=== PATIENT | female | born 1990 | race Caucasian/White ===

== ENCOUNTER 2016-06-30 15:13 | Emergency (ER) | payer OTHER ==
--- NOTE | 2016-06-30 15:44 | ED ORDER SUMMARY ---
..... Patient: LIN SUAZO OrderSheet [facility] VisitID: [id number] [address] [place] [address] 25y, F Registration Date/Time: 06/30/2016 ORDER SHEET Weight: 72.5 kg (stated) Allergies: No Known Drug Allergy GENERAL ORDERS: MEDICATION ORDERS: Zofran ODT PO 4 mg (NOW) (15:40 06/30/2016 HBivens A.R.N.P.) (Ack 15:46 MWinterer R.N.) (16:06 MWinterer R.N.) IV FLUIDS: ORDER SHEET NOTES: [Electronically signed by Donnell Sr RBayronNBayron (16:14 06/30/2016)] [Electronically signed by Cristel Russell.R.N.P. (17:51 06/30/2016)] [Electronically locked/signed by Donnell SrNBayron (16:14 06/30/2016)]
--- NOTE | 2016-06-30 15:44 | ED NURSING NOTES ---
Clinical Report - Nurses [facility] [address] [place] [address] 06/30/2016 15:15 Patient: LIN SUAZO TRIAGE Triage time 1524. Chief Complaint: COUGH and BODY ACHES and SINUS DRAINAGE, SINUS CONGESTION, RUNNY NOSE and FATIGUE. Alert. No acute distress. --15:32 Donnell Sr R.N. 15:24 06/30/16. BP: 121/67. HR: 102. RR: 16. O2 saturation: 100%. Temp: 98.6 F (oral). Pain level now: 12/23. --15:32 Donnell Sr R.N. Weight: 72.5 kg stated. Height/Length: 67 inches Per Patient. BMI: 25.1. --15:31 Donnell Sr R.N. Medications OXcarbazepine Oral 150 mg, 2x a day. --15:30 Donnell Sr R.N. Allergies No Known Drug Allergy. --15:30 Donnell Sr R.N. History Arrived by private vehicle. Historian: patient. Accompanied by family. This started yesterday. Onset was gradual. ( Patient presents to the ED with symptoms of cough, chest congestion and tightness x 3 weeks, but states that the chest congestion and tightness became significantly worse last night and patient states that she became nauseous last night. Patient states that she and a friend have been driving cross country from [place] since [place] She has had fatigue, sinus pain and a headache. ( Patient reports nausea started last night.). 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 PAST MEDICAL HX: Immunizations: up-to-date. Last normal menstrual period- Jun 13. No contraception. SOCIAL HX: Never smoker. Occasional alcohol use. History of drug use. (no). No infectious disease exposure. FALL RISK ASSESSMENT: Fall risk assessment completed. No fall risk identified. NUTRITIONAL RISK ASSESSMENT: The nutritional risk assessment revealed no deficiencies. FUNCTIONAL ASSESSMENT: Functional assessment: no impairments noted. LEARNING NEEDS ASSESSMENT: The learning needs assessment revealed no barriers. SKIN INTEGRITY ASSESSMENT: Skin integrity risk assessment completed. No skin integrity risk identified. --15:32 Donnell Sr R.N. PROBLEMS: Bipolar Disorder. --15:30 Donnell Sr R.N. ADDITIONAL SURGERIES: Tooth extraction. --15:30 Donnell Sr R.N. PHYSICAL ASSESSMENT Ambulatory to room. GENERAL / NEURO / PSYCH: Alert. Oriented X 4. Appears in no acute distress. HEENT: Pupils equal, round and reactive to light. Mucous membranes are pink. RESPIRATORY: Mild respiratory distress. Cough productive of moderate amounts of clear, yellow sputum. CVS: Normal sinus rhythm noted. Capillary refill less than 2 seconds. Pulses within normal limits. GI / : The patient has had nausea. Abdomen soft and nontender and normal bowel sounds. SKIN: Skin intact. Skin is warm and dry. Normal skin turgor. --15:33 Donnell Sr R.N. NURSING PROGRESS NOTES Call light placed in reach. Side rails up x 1. Bed placed in lowest position. Brakes of bed on. --15:33 Donnell Sr R.N. 15:51 06/30/2016 Zofran ODT (Ondansetron) PO 4 mg given. Allergies verified and confirmed 5 rights. --16:06 Hue Hernandez R.N. DISPOSITION / DISCHARGE Condition at departure: improved. The goals identified in the patient's plan of care were met. No learning barriers present. Discharge instructions provided and reviewed with the patient. Reviewed medication(s) side effects, precautions, dosing and course information. Reviewed fever care instructions. Reviewed need for increased fluid intake. Patient verbalized understanding. Written instructions provided in Swedish. The patient was discharged home and accompanied by patient financial counselor. She left the Emergency Department ambulatory and via private vehicle. [employer] Operator driving. --16:13 Donnell Sr R.N. 16:12 06/30/16. BP: 98/49. HR: 80. RR: 16. O2 saturation: 100%. Temp: 98.2 F. Pain level now: 0/10. --16:13 Donnell Sr R.N. Departure time: 1613 PM. --16:14 Donnell Sr R.N. Locked/Released at 06/30/2016 16:14 by Donnell Sr R.N.
--- NOTE | 2016-06-30 15:44 | ED ORDER SUMMARY ---
..... Patient: LIN SUAZO OrderSheet [facility] VisitID: [id number] [address] [place] [address] 25y, F Registration Date/Time: 06/30/2016 ORDER SHEET Weight: 72.5 kg (stated) Allergies: No Known Drug Allergy GENERAL ORDERS: MEDICATION ORDERS: Zofran ODT PO 4 mg (NOW) (15:40 06/30/2016 HBivens A.R.N.P.) (Ack 15:46 MWinterer R.N.) (16:06 MWinterer R.N.) IV FLUIDS: ORDER SHEET NOTES: [Electronically signed by Donnell Sr RBayronNBayron (16:14 06/30/2016)] [Electronically signed by Cristel Russell.R.N.P. (17:51 06/30/2016)] [Electronically locked/signed by Donnell SrNBayron (16:14 06/30/2016)]
--- NOTE | 2016-06-30 15:44 | ED CLINICAL REPORT ---
Clinical Report - Physicians/Mid Levels [facility] [address] [place] [address] 06/30/2016 15:15 Patient: LIN SUAZO Time Seen: 15:31; initial patient contact, initial documentation, patient care assumed. Arrived- By private vehicle. Historian- patient. HISTORY OF PRESENT ILLNESS Chief Complaint: COUGH, SINUS PAIN and MUSCLE ACHES. This started about 3 weeks ago and is still present. The illness is described as moderate. The patient has had a cough, nasal congestion, sinus pressure, sinus drainage and muscle aches. She has had a nasal discharge. She has had scant amounts of thick, yellow, green sputum. No difficulty breathing, chest pain, fever, sore throat or hoarseness. No ear pain. She has had chest discomfort (says her chest feels like it is full of smoke). Additional history - No known contact with a sick individual. No recent travel. Similar symptoms previously: None. Recent medical care: Not recently seen/assessed. REVIEW OF SYSTEMS The patient has had a moderate, pressure-like frontal and facial headache. She has had nausea. No vomiting, diarrhea or abdominal pain. All systems otherwise negative, except as recorded above. PAST HISTORY See nurses notes. PROBLEMS: Bipolar Disorder. --15:30 Donnell Sr RSteve. ADDITIONAL SURGERIES: Tooth extraction. --15:30 Donnell Sr R.N. SOCIAL HISTORY Never smoker. Occasional alcohol use. Not exposed to second-hand smoke at home. No drug use. No recent travel. Is a local resident. FAMILY HISTORY Negative. ADDITIONAL NOTES The nursing notes have been reviewed with agreement regarding the chief complaint, HPI, ROS, PMH and patient medications and allergies. PHYSICAL EXAM Vital Signs: 06/30/2016 15:24 BP: 121/67. HR: 102. RR: 16. O2 saturation: 100%. Temp: 98.6 F. Pain level now: 7/10. Have been reviewed as normal and appear to be correct. Appearance: Alert. No acute distress. Eyes: Pupils equal, round and reactive to light. Eyes normal inspection. ENT: Ears normal. Nose normal. Pharynx normal. Uvula midline. Neck: Normal inspection. Neck supple. CVS: Normal heart rate and rhythm. Heart sounds normal. Pulses normal. Respiratory: No respiratory distress. Breath sounds normal. Back: Normal inspection. Skin: Skin warm and dry. Normal skin color. No rash. Normal skin turgor. Extremities: Extremities exhibit normal ROM. No lower extremity edema. Neuro: Oriented X 3. No motor deficit. No sensory deficit. PROGRESS AND PROCEDURES Patient counseled in person regarding the patient's stable condition and diagnosis. 15:43. Differential Diagnosis: Other possible considerations: flu, uri, sinusitis, bronchitis, pneumonia. Above considerations are based on history and physical exam. Differential diagnosis was discussed with patient. Disposition: Discharged home in good and unchanged condition (15:44). Condition: good and stable. CLINICAL IMPRESSION Acute sinusitis INSTRUCTIONS Alternate Tylenol (Acetaminophen) and Motrin (Ibuprofen) for fever, temperature greater than 101 degrees. Take according to label instructions. Drink plenty of fluids for the next 24 hours until better. May continue medications with sips only. Warnings: GENERAL WARNINGS: Return or contact your physician immediately if your condition worsens or changes unexpectedly, if not improving as expected, or if other problems arise. Specifically return if problem worsens. Prescription Medications: Nasacort nasal spray: 2 sprays in each nostril once daily as needed for allergies. Dispense one (1) unit. No refills. Substitution is permissible. Augmentin 875 mg: take 1 tablet orally every 12 hours for 10 days. No refill. Follow-up: Follow up with your doctor in about five days even if well. Call for an appointment. Summary of care provided to patient. Understanding of the discharge instructions verbalized by patient. (Electronically signed by Cristel Russell A.R.N.P. 06/30/2016 17:51)
--- NOTE | 2016-06-30 15:44 | ED NURSING NOTES ---
Clinical Report - Nurses [facility] [address] [place] [address] 06/30/2016 15:15 Patient: LIN SUAZO TRIAGE Triage time 1524. Chief Complaint: COUGH and BODY ACHES and SINUS DRAINAGE, SINUS CONGESTION, RUNNY NOSE and FATIGUE. Alert. No acute distress. --15:32 Donnell Sr R.N. 15:24 06/30/16. BP: 121/67. HR: 102. RR: 16. O2 saturation: 100%. Temp: 98.6 F (oral). Pain level now: 12/23. --15:32 Donnell Sr R.N. Weight: 72.5 kg stated. Height/Length: 67 inches Per Patient. BMI: 25.1. --15:31 Donnell Sr R.N. Medications OXcarbazepine Oral 150 mg, 2x a day. --15:30 Donnell Sr R.N. Allergies No Known Drug Allergy. --15:30 Donnell Sr R.N. History Arrived by private vehicle. Historian: patient. Accompanied by family. This started yesterday. Onset was gradual. ( Patient presents to the ED with symptoms of cough, chest congestion and tightness x 3 weeks, but states that the chest congestion and tightness became significantly worse last night and patient states that she became nauseous last night. Patient states that she and a friend have been driving cross country from [place] since [place] She has had fatigue, sinus pain and a headache. ( Patient reports nausea started last night.). 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 PAST MEDICAL HX: Immunizations: up-to-date. Last normal menstrual period- Jun 13. No contraception. SOCIAL HX: Never smoker. Occasional alcohol use. History of drug use. (no). No infectious disease exposure. FALL RISK ASSESSMENT: Fall risk assessment completed. No fall risk identified. NUTRITIONAL RISK ASSESSMENT: The nutritional risk assessment revealed no deficiencies. FUNCTIONAL ASSESSMENT: Functional assessment: no impairments noted. LEARNING NEEDS ASSESSMENT: The learning needs assessment revealed no barriers. SKIN INTEGRITY ASSESSMENT: Skin integrity risk assessment completed. No skin integrity risk identified. --15:32 Donnell Sr R.N. PROBLEMS: Bipolar Disorder. --15:30 Donnell Sr R.N. ADDITIONAL SURGERIES: Tooth extraction. --15:30 Donnell Sr R.N. PHYSICAL ASSESSMENT Ambulatory to room. GENERAL / NEURO / PSYCH: Alert. Oriented X 4. Appears in no acute distress. HEENT: Pupils equal, round and reactive to light. Mucous membranes are pink. RESPIRATORY: Mild respiratory distress. Cough productive of moderate amounts of clear, yellow sputum. CVS: Normal sinus rhythm noted. Capillary refill less than 2 seconds. Pulses within normal limits. GI / : The patient has had nausea. Abdomen soft and nontender and normal bowel sounds. SKIN: Skin intact. Skin is warm and dry. Normal skin turgor. --15:33 Donnell Sr R.N. NURSING PROGRESS NOTES Call light placed in reach. Side rails up x 1. Bed placed in lowest position. Brakes of bed on. --15:33 Donnell Sr R.N. 15:51 06/30/2016 Zofran ODT (Ondansetron) PO 4 mg given. Allergies verified and confirmed 5 rights. --16:06 Hue Hernandez R.N. DISPOSITION / DISCHARGE Condition at departure: improved. The goals identified in the patient's plan of care were met. No learning barriers present. Discharge instructions provided and reviewed with the patient. Reviewed medication(s) side effects, precautions, dosing and course information. Reviewed fever care instructions. Reviewed need for increased fluid intake. Patient verbalized understanding. Written instructions provided in Khmer. The patient was discharged home and accompanied by wire spooler. She left the Emergency Department ambulatory and via private vehicle. [employer] Worker driving. --16:13 Donnell Sr R.N. 16:12 06/30/16. BP: 98/49. HR: 80. RR: 16. O2 saturation: 100%. Temp: 98.2 F. Pain level now: 0/10. --16:13 Donnell Sr R.N. Departure time: 1613 PM. --16:14 Donnell Sr R.N. Locked/Released at 06/30/2016 16:14 by Donnell Sr R.N.
--- NOTE | 2016-06-30 17:51 | ED MED RECONCILIATION SUMMARY ---
Patient: LIN SUAZO Medication Reconciliation Report [facility] VisitID: [id number] [address] [place] [address] 25y, F Registration Date/Time: 06/30/2016 Weight: 72.5 kg Height/Length: 67 in. BMI: 25.1 ALLERGIES: No Known Drug Allergy The patient's Home Medications are listed below: THE FOLLOWING MEDICATIONS NEED TO BE RECONCILED: OXcarbazepine Oral 150 mg, 2x a day The source(s) of the original Home Medication information: Not obtained. The following Medications were given to the patient in the Emergency Department: Zofran ODT [PO] PO 4 mg, administered: 06/30/2016 3:51:00 PM The following Medications were prescribed to the patient: Nasacort nasal spray: 2 sprays in each nostril once daily as needed for allergies. Dispense one (1) unit. No refills. Substitution is permissible. -- Cristel Russell, A.R.N.P. Augmentin 875 mg: take 1 tablet orally every 12 hours for 10 days. No refill. -- Cristel Russell A.R.N.P.
--- NOTE | 2016-06-30 17:51 | ED MAR SUMMARY ---
..... Medication Administration Record [facility] [address] [place] [address] Patient: LIN SUAZO Visit ID: [id number] 25y, F Weight: 72.5 kg Height/Length: 67 in BMI: 25.1 ALLERGIES: No Known Drug Allergy Given 15:51 06/30/2016 Hue Hernandez R.N. Medication Administered: ZOFRAN ODT [PO] (ONDANSETRON), Dose: 4 mg PO. Medication Ordered: Zofran ODT PO 4 mg (NOW).
--- NOTE | 2016-06-30 17:51 | ED MAR SUMMARY ---
..... Medication Administration Record [facility] [address] [place] [address] Patient: LIN SUAZO Visit ID: [id number] 25y, F Weight: 72.5 kg Height/Length: 67 in BMI: 25.1 ALLERGIES: No Known Drug Allergy Given 15:51 06/30/2016 Hue Hernandez R.N. Medication Administered: ZOFRAN ODT [PO] (ONDANSETRON), Dose: 4 mg PO. Medication Ordered: Zofran ODT PO 4 mg (NOW).
--- NOTE | 2016-06-30 17:51 | ED MED RECONCILIATION SUMMARY ---
Patient: LIN SUAZO Medication Reconciliation Report [facility] VisitID: [id number] [address] [place] [address] 25y, F Registration Date/Time: 06/30/2016 Weight: 72.5 kg Height/Length: 67 in. BMI: 25.1 ALLERGIES: No Known Drug Allergy The patient's Home Medications are listed below: THE FOLLOWING MEDICATIONS NEED TO BE RECONCILED: OXcarbazepine Oral 150 mg, 2x a day The source(s) of the original Home Medication information: Not obtained. The following Medications were given to the patient in the Emergency Department: Zofran ODT [PO] PO 4 mg, administered: 06/30/2016 3:51:00 PM The following Medications were prescribed to the patient: Nasacort nasal spray: 2 sprays in each nostril once daily as needed for allergies. Dispense one (1) unit. No refills. Substitution is permissible. -- Cristel Russell, A.R.N.P. Augmentin 875 mg: take 1 tablet orally every 12 hours for 10 days. No refill. -- Cristel Russell A.R.N.P.
--- NOTE | 2016-06-30 17:51 | ED DISCHARGE INSTRUCTIONS ---
Patient: LIN SUAZO General Instructions [facility] VisitID: [id number] [place] [address] 25y, F Registration Date/Time: 06/30/2016 Acute sinusitis INSTRUCTIONS Alternate Tylenol (Acetaminophen) and Motrin (Ibuprofen) for fever, temperature greater than 101 degrees. Take according to label instructions. Drink plenty of fluids for the next 24 hours until better. May continue medications with sips only. Warnings: GENERAL WARNINGS: Return or contact your physician immediately if your condition worsens or changes unexpectedly, if not improving as expected, or if other problems arise. Specifically return if problem worsens. Prescription Medications: Nasacort nasal spray: 2 sprays in each nostril once daily as needed for allergies. Dispense one (1) unit. No refills. Substitution is permissible. Augmentin 875 mg: take 1 tablet orally every 12 hours for 10 days. No refill. Follow-up: Follow up with your doctor in about five days even if well. Call for an appointment. Summary of care provided to patient. Understanding of the discharge instructions verbalized by patient. ADDITIONAL INFORMATION Sinusitis [Abx Tx] The sinuses are air-filled spaces within the bones of the face. They connect to the inside of the nose. Sinusitis is an inflammation of the tissue lining the sinus cavity. Sinus inflammation can occur during a cold or hay-fever (allergies to pollens and other particles in the air) and cause symptoms of sinus congestion and fullness. A sinus infection causes fever, headache and facial pain. There is usually green or yellow drainage from the nose or into the back of the throat (post-nasal drip). Antibiotics are prescribed to treat this condition. Home Care: Drink plenty of water, hot tea, and other liquids to stay well hydrated. This thins the mucus and promotes sinus drainage. Apply heat to the painful areas of the face. Use a towel soaked in hot water. Or, access coordinator the shower and direct the hot spray onto your face. This is a good way to inhale warm water vapor and get heat on your face at the same time. (Cover your mouth and nose with your hands so you can still breathe as you do this.) Use a vaporizer with products such as Vicks VapoRub (contains menthol) at night. Suck on peppermint, menthol or eucalyptus hard candies during the day. An expectorant containing guaifenesin (such as Robitussin), helps to thin the mucus and promote drainage from the sinuses. Aoch-nst-tefstrb decongestants may be used unless a similar medicine was prescribed. Nasal sprays work the fastest. Use one that contains phenylephrine (Jayant-synephrine, Sinex and others) or oxymetazoline (Afrin). First blow the nose gently to remove mucus, then apply the drops. Do not use these medicines more often than directed on the label or for more than three days or symptoms may worsen. You may also use tablets containing pseudoephedrine (Sudafed). Many sinus remedies combine ingredients, which may increase side effects. Read the labels or ask the pharmacist for help. NOTE: Persons with high blood pressure should not use decongestants. They can raise blood pressure. Antihistamines are useful if allergies are a cause of your sinusitis. The mildest one is chlorpheniramine (available without a prescription). The dose for adults is 8-12mg three times a day. [NOTE: Do not use chlorpheniramine if you have glaucoma or if you are a man with trouble urinating due to an enlarged prostate.] Claritin (loratidine) is an antihistamine that causes less drowsiness and is a good alternative for daytime use. Do not use nasal rinses or irrigation during an acute sinus infection, unless advised by your doctor. Rinsing may spread the infection to other sinuses. You may use acetaminophen (Tylenol) or ibuprofen (Motrin, Advil) to control pain, unless another pain medicine was prescribed. [ NOTE: If you have chronic liver or kidney disease or ever had a stomach ulcer, talk with your doctor before using these medicines.] (Aspirin should never be used in anyone under 18 years of age who is ill with a fever. It may cause severe liver damage.) Finish the full course, even if you are feeling better after a few days. Follow Up with your doctor or this facility in one week or as instructed by our staff if not improving. Get Prompt Medical Attention if any of the following occur: Facial pain or headache becomes more severe Stiff neck Unusual drowsiness or confusion, or not acting like your normal self Swelling of the forehead or eyelids Vision problems including blurred or double vision Fever of 100.4F (38C) or higher, or as directed by your healthcare provider Seizure Fever Control (Adult) A fever is a natural reaction of the body to an illness. In most cases, the temperature itself is not harmful. It actually helps the body fight infections. A fever does not need to be treated unless you feel very uncomfortable. Home Care If you feel warm, check your temperature. If you feel very uncomfortable and your temperature is at or higher than 100.4F (38C) oral, you may take acetaminophen (Tylenol) every 4 to 6 hours. If you cant take or keep down oral medicine, ask your pharmacist for Tylenol suppositories, which you can get without a prescription. If the fever does not respond to acetaminophen within 1 hour, take ibuprofen (Advil or Motrin). If this works, keep taking the ibuprofen every 6 to 8 hours. Note: If you have chronic liver or kidney disease or ever had a stomach ulcer or GI bleeding, talk with your doctor before using these medications. If either medication alone does not keep the fever down, you may alternate the two medicines every 3 to 4 hours, only if your healthcare provider has instructed you to do so. For example, take Motrin then wait 3 hours, take Tylenol then wait 3 hours, take Motrin, and so on. Follow your healthcare providers instructions exactly. Clothing: Keep clothing light because excess body heat is lost through the skin. The fever will go up if you wear extra layers or wrap in blankets. Fluids: Fever causes the body to lose water through evaporation. Drink plenty of fluids such as water, juice, clear sodas, guillermina karan, or lemonade. Do not use aspirin in anyone under 18 years of age who is ill with a fever. It can cause severe liver damage. Follow Up with your doctor or as advised by our staff if you do not get better after 48 hours. Get Prompt Medical Attention if any of the following occur: Fever does not get better after taking fever medication Fast or difficult breathing Earache, sinus pain, stiff or painful neck, headache, repeated diarrhea or vomiting You feel unusually irritable, drowsy, or confused A rash appears You feel weak or dizzy, or that you might faint Dehydration, Preventing (Child) Children lose fluids more easily than adults. When ill, children may refuse to drink, or drink less than they need. In addition, they often have stomach disturbances. Dehydration can easily occur when the child has a fever, diarrhea, or vomiting. When fluid intake is less than fluid output, water and electrolytes are lost. This condition is called dehydration. When your child is sick, watch for signs of dehydration. If you see any of these signs, take steps to increase your lew fluid intake. If the child cannot keep fluids down or continues to have symptoms, call the lew doctor. Signs Of Dehydration Thirstiness Decreased urine output; dark, strong-smelling urine Dry, sticky mouth Sunken eyes Crying without tears Home Care: Medications: The doctor may prescribe medications to treat your lew condition. Follow the doctors instructions for giving medications to your child. Note: Medications are usually not prescribed for diarrhea. It is better to let the diarrhea run its course. Do not give your child cvxp-bek-glwfgjg medications without consulting with the doctor first. General Care: If your child is sick, give him or her plenty of fluids. If he or she is vomiting, encourage small sips of clear liquids, such as water, ice chips, guillermina karan, or popsicles. Gradually increase the amount of fluids until the child can drink without vomiting. The doctor may recommend giving your child an oral rehydration solution (such as Pedialyte, Infalyte, or Rehydralyte, which are available from grocery and drug stores without a prescription.) Give this to your child according to the doctors instructions. Watch your child carefully for any signs of dehydration. Follow Up as advised by the doctor or our staff. Get Prompt Medical Attention if any of the following occur: Fever greater than 100.4F (38C) Trouble keeping fluids down; continuous vomiting Listlessness, lack of response No urine output in 8 hours; small amounts of dark urine Worsening abdominal pain or worsening headache Triamcinolone Acetonide Nasal spray What is this medicine? TRIAMCINOLONE (trye am SIN [place]) nasal spray is a corticosteroid. It is used to treat the nasal symptoms of seasonal and year round allergies. How should I use this medicine? This medicine is for use in the nose. Follow the directions on your prescription label. This medicine works best if used regularly. Do not use more often than directed. Make sure that you are using your nasal spray correctly. Ask you doctor or health care provider if you have any questions. Talk to your asthma educator regarding the use of this medicine in children. While this drug may be prescribed for children as young as 2 years of age for selected conditions, precautions do apply. What side effects may I notice from receiving this medicine? Side effects that you should report to your doctor or health personal care attendant as soon as possible: allergic reactions like skin rash, itching or hives, swelling of the face, lips, or tongue change in vision dizziness infection nosebleed, burning in the nose trouble breathing, wheezing unusual bruising white patches or sores in the nose Side effects that usually do not require medical attention (report to your doctor or health personal care attendant if they continue or are bothersome): congestion cough headache nausea runny nose sneezing What may interact with this medicine? Interactions are not expected. What if I miss a dose? If you miss a dose, take it as soon as you can. If it is almost time for your next dose, take only that dose. Do not take double or extra doses. Where should I keep my medicine? Keep out of the reach of children. Store at room temperature between 20 and 25 degrees C (68 and 77 degrees F). Throw away the canister after 120 sprays or after the expiration date, whichever comes first. What should I tell my health care provider before I take this medicine? They need to know if you have any of these conditions: infection, like tuberculosis, herpes, or fungal infection recent surgery or injury of nose or sinuses taking corticosteroids by mouth an unusual or allergic reaction to triamcinolone, corticosteroids, other medicines, foods, dyes, or preservatives or trying to get breast-feeding What should I watch for while using this medicine? Check with your doctor or health personal care attendant if your symptoms do not improve in 1 week of regular use or if they get worse. Do not come in contact with people who have chickenpox or the measles while you are taking this medicine. If you do, call your doctor right away. Amoxicillin Trihydrate, Clavulanate Potassium Oral tablet What is this medicine? AMOXICILLIN; CLAVULANIC ACID (a mox i PERNELL in; CLAIR winter id) is a penicillin antibiotic. It is used to treat certain kinds of bacterial infections. It will not work for colds, flu, or other viral infections. How should I use this medicine? Take this medicine by mouth with a full glass of water. Follow the directions on the prescription label. Take at the start of a meal. Do not crush or chew. If the tablet has a score line, you may cut it in half at the score line for easier swallowing. Take your medicine at regular intervals. Do not take your medicine more often than directed. Take all of your medicine as directed even if you think you are better. Do not skip doses or stop your medicine early. Talk to your asthma educator regarding the use of this medicine in children. Special care may be needed. What side effects may I notice from receiving this medicine? Side effects that you should report to your doctor or health personal care attendant as soon as possible: allergic reactions like skin rash, itching or hives, swelling of the face, lips, or tongue breathing problems dark urine fever or chills, sore throat redness, blistering, peeling or loosening of the skin, including inside the mouth seizures trouble passing urine or change in the amount of urine unusual bleeding, bruising unusually weak or tired white patches or sores in the mouth or throat Side effects that usually do not require medical attention (report to your doctor or health personal care attendant if they continue or are bothersome): diarrhea dizziness headache nausea, vomiting stomach upset vaginal or anal irritation What may interact with this medicine? allopurinol anticoagulants control pills methotrexate probenecid What if I miss a dose? If you miss a dose, take it as soon as you can. If it is almost time for your next dose, take only that dose. Do not take double or extra doses. Where should I keep my medicine? Keep out of the reach of children. Store at room temperature below 25 degrees C (77 degrees F). Keep container tightly closed. Throw away any unused medicine after the expiration date. What should I tell my health care provider before I take this medicine? They need to know if you have any of these conditions: bowel disease, like colitis kidney disease liver disease mononucleosis an unusual or allergic reaction to amoxicillin, penicillin, cephalosporin, other antibiotics, clavulanic acid, other medicines, foods, dyes, or preservatives or trying to get breast-feeding What should I watch for while using this medicine? Tell your doctor or health personal care attendant if your symptoms do not improve. Do not treat diarrhea with over the counter products. Contact your doctor if you have diarrhea that lasts more than 2 days or if it is severe and watery. If you have diabetes, you may get a false-positive result for sugar in your urine. Check with your doctor or health personal care attendant. control pills may not work properly while you are taking this medicine. Talk to your doctor about using an extra method of control. You have been given the following additional information: Sinusitis, Abx Tx Fever Control (Adult) Dehydration, Preventing (Child) Triamcinolone Acetonide Nasal spray Amoxicillin Trihydrate, Clavulanate Potassium Oral tablet (Electronically signed by Cristel Russell A.R.N.P. 06/30/2016 17:51)
== END 2016-06-30 16:16 | disposition home or self-care (01) ==
LOC: ED SRH 15:13
DX: J01.90 Acute sinusitis, unspecified (principal)